=== PATIENT | male | born 1960 | race Caucasian/White ===

== ENCOUNTER 2020-07-25 19:58 | Emergency (ER) | payer OTHER ==
[~2020-07-25] VITALS: Ht 177.8 cm; Wt 83.9 kg
[2020-07-25] MEDS ORDERED: KETO10TA2 PO (22:40)
[2020-07-25] MEDS ORDERED: ORPHENADRINE C100 MG PO (22:40)
== END 2020-07-25 22:45 ==
LOC: ER 19:58
DX: S43.491A Other sprain of right shoulder joint, initial encounter (principal); M75.31 Calcific tendinitis of right shoulder; W01.0XXA Fall on same level from slipping, tripping and stumbling without subsequent striking against object, initial encounter; Y93.01 Activity, walking, marching and hiking; Y92.89 Other specified places as the place of occurrence of the external cause; Y99.8 Other external cause status